=== PATIENT | male | born 2000 ===

== ENCOUNTER 2025-02-13 21:43 | Emergency (ER) | payer SELFPAY ==
[2025-02-13 21:57] LABS: #Basophils 0.06 10x3/uL (0.0-0.2); #Eosinophils 0.09 10x3/uL (0.0-0.5); #Monocytes 0.59 10x3/uL (0.0-1.1); #Neutrophils 2.50 10x3/uL (1.5-8.4); %Basophils 1.1 % (0.0-2.0); %Eosinophils 1.6 % (0.0-6.0); %Lymphocytes 41.4 % (18.0-47.0); %Monocytes 10.7 % (0.0-10.0); %Neutrophils 45.2 % (40.0-75.0); Hematocrit 41.1 % (38.8-50.0); Hemoglobin 14.3 g/dL (13.5-17.5); Mean Corpuscular Hemoglobin 31.0 pg (27.0-33.0); Mean Corpuscular Volume 89.0 fL (81.2-95.1); Platelet Count 234 10x3/uL (150-450); Red Blood Cell (RBC) Count 4.62 10x6/uL (4.32-5.72); White Blood Cell (WBC) Count 5.53 10x3/uL (3.5-10.5)
[2025-02-13 22:11] LABS: ALT (SGPT) 8 U/L (Less than 45); AST (SGOT) 29 U/L (11-34); Albumin 4.7 g/dL (3.1-4.5); Alkaline Phosphatase 73 U/L (40-110); Anion Gap 16 mmol/L (10-20); BUN (Urea Nitrogen) 11 mg/dL (8.9-20.6); Bilirubin, Total 0.3 mg/dL (0.3-1.2); Calc. Creatinine Clearance 0 mL/min (70-130); Calcium 8.3 mg/dL (7.8-10.44); Carbon Dioxide 21 mmol/L (22-29); Chloride 101 mmol/L (98-107); Globulin 2.9 g/dL (2.4-3.5); Glucose 105 mg/dL (70-105); Potassium 3.2 mmol/L (3.5-5.1); Sodium 135 mmol/L (136-145)
[2025-02-13 22:49] LABS: Troponin I Less than 0.010 ng/mL (< 0.028)
== END 2025-02-13 23:01 | disposition home or self-care (01) ==
LOC: CSHERS 21:43
DX: E86.0 Dehydration (principal); E87.6 Hypokalemia
CPT/HCPCS: 70450; 72125; 80053; 84484; 85025; 93005